=== PATIENT | female | born 1955 | race Hispanic/Latino ===

== ENCOUNTER 2017-12-31 21:47 | Observation (INO) | payer SELFPAY ==
[~2017-12-31] VITALS: Ht 157.5 cm; Wt 53.9 kg
[2017-12-31 22:17] LABS: BASOPHILS % (AUTO) 0.7 % (0.0-5.0); HEMATOCRIT 32.7 % (36-48); LYMPHOCYTES % (AUTO) 18.8 % (21.0-51.0); MEAN CORPUSCULAR HEMOGLOBIN 29.9 pg (27.0-33.0); MEAN CORPUSCULAR HGB CONC 36.6 g/dL (32.0-36.0); MEAN CORPUSCULAR VOLUME 81.6 fL (79-99); MONOCYTES % (AUTO) 10.5 % (3.0-13.0); NUCLEATED RED BLOOD CELLS 0.1 % (0.0-0.19); PLATELET COUNT (AUTO) 195 K/uL (130-400); RED BLOOD CELL COUNT(AUTO) 4.01 MIL/uL (4.00-5.50); RED CELL DISTRIBUTION WIDTH 14.2 % (11.0-15.5); WHITE BLOOD COUNT (AUTO) 5.7 K/uL (4.8-10.8)
[2017-12-31 22:26] LABS: POTASSIUM 4.1 mmol/L (3.5-5.1)
[2017-12-31 22:28] LABS: INR 0.95 (0.85-1.15); PARTIAL THROMBOPLASTIN TIME 27.9 SEC (26.3-35.5)
[2017-12-31 22:48] LABS: ALBUMIN 3.6 g/dL (3.5-5.0); BILIRUBIN,TOTAL 0.4 mg/dL (0.2-1.0); CREATINE KINASE MB 0.5 ng/mL (0.5-3.6)
[2017-12-31 23:07] LABS: APPEARANCE,URINE Clear (CLEAR); BILIRUBIN,URINE Negative (NEGATIVE); COLOR,URINE Yellow (YELLOW); GLUCOSE, URINE (UA) >=1000 mg/dL (NEGATIVE); KETONES,URINE Negative (NEGATIVE); LEUKOCYTE ESTERASE ,URINE Small (NEGATIVE); NITRATE,URINE Negative (NEGATIVE); OCCULT BLOOD,URINE Negative (NEGATIVE); PROTEIN,URINE Negative (NEGATIVE); UROBILINOGEN,URINE 0.2 mg/dL (0.2-1.0)
[2017-12-31 23:17] LABS: BACTERIA,URINE Rare /HPF (None Seen); RBC,URINE None Seen /HPF (0-1); SQUAMOUS EPITHELIAL CELL,UR Rare /LPF (0-2); WBC,URINE 0-1 /HPF (0-1); YEAST,URINE BUDDING None Seen /HPF (None Seen)
[2017-12-31] MEDS ORDERED: IOPAMIDOL-370 75 ML VIAL IV ONE (23:37)
[2017-12-31] MEDS ORDERED: MORPHINE SULFATE 2 MG/ML 1ML SYG ONE (23:38)
[2017-12-31] MEDS ORDERED: SODIUM CHLORIDE 0.9% 1000ML 1,000 ML IV ONE (23:38)
[2017-12-31] MEDS ORDERED: ONDANSETRON HCL 4 MG/2 ML VIAL ONE (23:38)
[2018-01-01] MEDS ORDERED: SODIUM CHLORIDE 0.9% 1000ML 1,000 ML IV ONE (06:12)
[2018-01-01 06:46] LABS: BASOPHILS % (AUTO) 0.7 % (0.0-5.0); HEMATOCRIT 30.1 % (36-48); LYMPHOCYTES % (AUTO) 20.7 % (21.0-51.0); MEAN CORPUSCULAR HEMOGLOBIN 28.7 pg (27.0-33.0); MEAN CORPUSCULAR HGB CONC 35.1 g/dL (32.0-36.0); MEAN CORPUSCULAR VOLUME 81.8 fL (79-99); MONOCYTES % (AUTO) 13.5 % (3.0-13.0); NEUTROPHILS % (AUTO) 65.1 % (40.0-77.0); PLATELET COUNT (AUTO) 178 K/uL (130-400); RED BLOOD CELL COUNT(AUTO) 3.68 MIL/uL (4.00-5.50); RED CELL DISTRIBUTION WIDTH 14.1 % (11.0-15.5); WHITE BLOOD COUNT (AUTO) 4.7 K/uL (4.8-10.8)
[2018-01-01 06:51] LABS: CREATININE 1.1 mg/dL (0.5-1.5); POTASSIUM 4.1 mmol/L (3.5-5.1)
[2018-01-01 16:15] VITALS: BP 140/72
[2018-01-01] MEDS ORDERED: GLIP5TAB11 PO (17:34)
[2018-01-01] MEDS ORDERED: PRAV40TA3 PO (17:34)
[2018-01-01] MEDS ORDERED: SODIUM CHLORIDE 0.9% 1000ML 1,000 ML IV SCH (17:45)
[2018-01-01 17:56] VITALS: BP 140/72
[2018-01-01 19:20] VITALS: BP 131/78
== END 2018-01-01 20:15 | disposition home or self-care (01) ==
LOC: EDH 21:47 → EDHIP 21:48 → 3AH 01-01 16:01
PROVIDERS: ADMIT Surgery; ATTEND Surgery
DX: M54.9 Dorsalgia, unspecified (principal); E11.9 Type 2 diabetes mellitus without complications
CPT/HCPCS: 36415 ×2; 71045; 71100; 74177; 80048; 80053; 81001; 82550; 82553; 84484; 85025 ×2; 85610; 85730; 96360; 96361; 99285; G0378 ×19; J2405; J7030 ×2; Q9967